=== PATIENT | female | born 1995 | race Caucasian/White ===

== ENCOUNTER 2018-05-30 20:01 | Emergency (ER) | payer OTHER ==
[2018-05-30 20:50] LABS: KETONE, URINE AUTO RFX TRACE mg/dL (NEGATIVE); LEUKOCYTE ESTERASE UR AUTO RFX NEGATIVE (NEGATIVE); MUCUS, URINE RFX SMALL (NEGATIVE); NITRITE, URINE AUTO RFX NEGATIVE (NEGATIVE); RBC, URINE AUTO RFX 5 /HPF (0-3); SPECIFIC GRAVITY UR AUTO RFX 1.027 (1.002-1.035); SQUAM EPITHELIAL CELL UR AURFX 6 /HPF (0-6); WBC, URINE AUTO RFX 3 /HPF (0-3)
[2018-05-31 01:13] LABS: BASO % 0.1 % (0.0-1.0); HEMATOCRIT 41.3 % (36.0-47.0); HEMOGLOBIN 14.3 g/dl (12.0-15.5); IMMATURE GRANULOCYTE % 0.4 % (0-3.0); LYMPH # 0.9 10^3/uL (1.5-6.5); LYMPH % 11.2 % (24.0-44.0); MEAN CORPUSCULAR HEMOGLOBIN 29.5 pg (27.0-33.0); MEAN CORPUSCULAR HGB CONC 34.6 g/dl (32.0-36.5); MEAN CORPUSCULAR VOLUME 85.3 fl (80.0-96.0); MONO # 0.6 10^3/uL (0.0-0.8); MONO % 6.7 % (0.0-5.0); NEUTROPHILS # 6.7 10^3/uL (1.8-7.7); NEUTROPHILS % 81.6 % (36.0-66.0); PLATELET COUNT, AUTOMATED 212 10^3/uL (150-450); RED BLOOD COUNT 4.84 10^6/uL (4.00-5.40); WHITE BLOOD COUNT 8.2 10^3/uL (4.0-10.0)
[2018-05-31 01:15] LABS: CONTROL LINE HCG INT CTR LINE PRESENT; HCG, SERUM QUALITATIVE NEGATIVE (NEGATIVE)
[2018-05-31 01:18] LABS: ANION GAP 12 MEQ/L (8-16); BLOOD UREA NITROGEN 13 MG/DL (7-18); CALCIUM LEVEL 8.9 MG/DL (8.5-10.1); CARBON DIOXIDE LEVEL 24 MEQ/L (21-32); CHLORIDE LEVEL 101 MEQ/L (98-107); CREATININE FOR GFR 0.69 MG/DL (0.55-1.30); GLUCOSE, FASTING 87 MG/DL (70-100); POTASSIUM SERUM 3.7 MEQ/L (3.5-5.1); SODIUM LEVEL 137 MEQ/L (136-145)
[2018-05-31] MEDS: ONDANSETRON 4MG/2ML VIAL (J2405) IV (01:28)
[2018-05-31] MEDS: NS 1,000 ML IV (01:29)
== END 2018-05-31 03:07 | disposition home or self-care (01) ==
LOC: M ED 20:01
DX: K52.9 Noninfective gastroenteritis and colitis, unspecified (principal); Z79.3 Long term (current) use of hormonal contraceptives; Z79.899 Other long term (current) drug therapy
CPT/HCPCS: J2405

== ENCOUNTER 2019-07-07 00:27 | Outpatient (CLI) | payer OTHER ==
[~2019-07-07] VITALS: Ht 161.3 cm; Wt 64.9 kg
[~2019-07-07 00:27] MED LIST: MELA3TAB49 PO; SERT25TA85 PO; YAZ1TAB PO; ZOFR4TAB14 SL
[2019-07-07 01:28] VITALS: BP 138/91
[2019-07-07 01:29] VITALS: BP 136/100
[2019-07-07 01:45] LABS: HEMATOCRIT 33.1 % (36.0-47.0); MEAN CORPUSCULAR HEMOGLOBIN 27.4 pg (27.0-33.0); MEAN CORPUSCULAR HGB CONC 33.2 g/dl (32.0-36.5); MEAN CORPUSCULAR VOLUME 82.3 fl (80.0-96.0); PLATELET COUNT, AUTOMATED 180 10^3/uL (150-450); RED BLOOD COUNT 4.02 10^6/uL (4.00-5.40); WHITE BLOOD COUNT 9.5 10^3/uL (4.0-10.0)
[2019-07-07 02:15] VITALS: BP 137/86
[2019-07-07 02:16] LABS: ALBUMIN 2.5 GM/DL (3.2-5.2); ALT/SGPT 18 U/L (12-78); BILIRUBIN,TOTAL 0.2 MG/DL (0.2-1.0); BLOOD UREA NITROGEN 8 MG/DL (7-18); CALCIUM LEVEL 8.6 MG/DL (8.5-10.1); CARBON DIOXIDE LEVEL 24 MEQ/L (21-32); CHLORIDE LEVEL 107 MEQ/L (98-107); CREATININE FOR GFR 0.59 MG/DL (0.55-1.30); GLOMERULAR FILTRATION RATE > 60.0 (>60); GLUCOSE, FASTING 98 MG/DL (70-100); POTASSIUM SERUM 4.1 MEQ/L (3.5-5.1); SODIUM LEVEL 138 MEQ/L (136-145); TOTAL PROTEIN 5.8 GM/DL (6.4-8.2)
--- NOTE | 2019-07-07 03:02 | IPNPDOC ---
Text Note Date of Service The patient was seen on 07/07/19. NOTE OB considerations: PTSD, Depression Elevated BP 07/07 Ms. Arcos is a 23y/o G1 @ 37+0 wks by 1st trimester US (CHRISTINA [id number]) presents to triage with multiple complaints. She notes dry cough and difficulty breathing, feeling flushed and hot/cold intolerance at home. She also notes leakage of watery discharge and pelvic cramping. She endorses active movement. Additionally, patient notes itching of feet and hands without rash. PE: T99.1F BP 138/91 RR17 HR 90 SpO2 99% RA BPS 0050 138/91 0128 138/91 0129 136/100 0214 137/86 General - alert and oriented, laughing Resp - CTAB, no crackles, wheezes or rhonchi. No increased work of breathing CV - RRR, no murmurs, rubs or gallops Abd - Soft, NT, ND. Gravid Ext- No edema erythema or calf tenderness NST: 140, mod ronen +accels, no decels TOCO: q5 minutes SSE: Cervix visually closed. Pooled white discharge and white chunks of discharge in vault. No leakage of clear fluid with or without valsalva. Microscopy: Clue cells present, no trichomonas, no yeast. No ferning present. TAUS: cephalic presentation, MVP 6.1cm Labs: H/H: 11/33.1 AST 14 ALT 18 Platelets 180 Cr 0.59 Urine Dipstick: No protein Bile Salts and Spot urine: Pending A/p: 23y/o G1 @ 37+0 wks with bacterial vaginosis, and transiently elevated BP, not in active labor. -Patient does not meet criteria for GHTN at this time. Will continue to monitor blood pressure. Discussed signs/symptoms of pre-eclampsia and return precautions given -Patient with itching of hands/feet. LFTs normal today. Will followup bile salts when results available. Patient to return if itching persists/worsens. -Bacterial vaginosis on swab today; will treat with Metronidazole 500mg BID x7 days -Cough; likely viral URI without concern for respiratory compromise, influenza or pneumonia -All questions answered to patient's apparent satisfaction. Return precautions and kick counts discussed. VS,Fishbone, I+O VS, Fishbone, I+O Laboratory Tests 07/07/19 01:35 Red Blood Count 4.02, Mean Corpuscular Volume 82.3, Mean Corpuscular Hemoglobin 27.4, Mean Corpuscular Hemoglobin Concent 33.2, Red Cell Distribution Width 12.3, Calcium Level 8.6, Aspartate Amino Transf (AST/SGOT) 14, Alanine Aminotransferase (ALT/SGPT) 18, Alkaline Phosphatase 154 H, Total Bilirubin 0.2, Total Protein 5.8 L, Albumin 2.5 L Rupal Randall MD Jul 07, 2019 03:02
[2019-07-07 03:32] LABS: CREATININE,RANDOM URINE 19.1 MG/DL; TOTAL PROTEIN,RANDOM URINE 6.4 MG/DL (0.0-12.0)
[2019-07-08] MEDS ORDERED: PROZ10CA7 PO (13:34)
[2019-07-08] MEDS ORDERED: FLAG250T PO (13:34)
[2019-07-08] MEDS ORDERED: PREN29TA4 PO (13:34)
[2019-07-08] MEDS ORDERED: FLUO40CA PO (15:21)
== END 2019-07-07 03:08 | disposition home or self-care (01) ==
LOC: M LDO 00:27
PROVIDERS: ATTEND Obstetrics & Gynecology
DX: O26.893 Other specified pregnancy related conditions, third trimester (principal); R05 Cough; N89.8 Other specified noninflammatory disorders of vagina; R10.2 Pelvic and perineal pain; O23.593 Infection of other part of genital tract in pregnancy, third trimester; B96.89 Other specified bacterial agents as the cause of diseases classified elsewhere; R03.0 Elevated blood-pressure reading, without diagnosis of hypertension; Z3A.37 37 weeks gestation of pregnancy
CPT/HCPCS: 36415; 59025; 76815; 80053; 82239; 82570; 84156; 85027; G0378; G0463

== ENCOUNTER 2019-07-08 13:01 | Inpatient (IN) | payer OTHER ==
[~2019-07-08] VITALS: Ht 160 cm; Wt 63.5 kg
[2019-07-08] VITALS (36 sets, daily range): BP systolic 121–168; BP diastolic 61–111
[2019-07-08] MEDS ORDERED: PREN29TA4 PO (13:34)
[2019-07-08] MEDS ORDERED: FLAG250T PO (13:34)
[2019-07-08] MEDS ORDERED: PROZ10CA7 PO (13:34)
[2019-07-08] MEDS ORDERED: miSOPROStol 25 MCG 1/4 TAB (S0191) PO SCH (15:00)
[2019-07-08] MEDS ORDERED: FLUO40CA PO (15:21)
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
[2019-07-08] MEDS: miSOPROStol 25 MCG 1/4 TAB (S0191) SL SCH ×2 (16:57→21:07)
[2019-07-08] MEDS: FLUoxetine 20 MG CAP PO SCH (16:57)
[2019-07-08 17:09] LABS: HEMATOCRIT 34.2 % (36.0-47.0); HEMOGLOBIN 11.3 g/dl (12.0-15.5); MEAN CORPUSCULAR HEMOGLOBIN 26.3 pg (27.0-33.0); MEAN CORPUSCULAR VOLUME 79.7 fl (80.0-96.0); PLATELET COUNT, AUTOMATED 208 10^3/uL (150-450); RED BLOOD COUNT 4.29 10^6/uL (4.00-5.40); WHITE BLOOD COUNT 9.6 10^3/uL (4.0-10.0)
[2019-07-08 17:34] LABS: ALT/SGPT 17 U/L (12-78); BILIRUBIN,TOTAL 0.3 MG/DL (0.2-1.0); CREATININE FOR GFR 0.49 MG/DL (0.55-1.30); GLOMERULAR FILTRATION RATE > 60.0 (>60); LDH LACTATE DEHYDROGENASE 156 U/L (84-246); URIC ACID 3.2 MG/DL (2.6-6.0)
[2019-07-09] VITALS (46 sets, daily range): BP systolic 112–162; BP diastolic 58–102
[2019-07-09] MEDS: miSOPROStol 25 MCG 1/4 TAB (S0191) SL SCH (01:03)
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
[2019-07-09] MEDS ORDERED: miSOPROStol 50 MCG 1/2 TAB (S0191) SL ONE ×2 (03:45→05:00)
[2019-07-09] MEDS ORDERED: SLF 3 ML SYR IV PRN (08:45)
[2019-07-09] MEDS: FLUoxetine 20 MG CAP PO SCH (08:47)
[2019-07-09] MEDS: LR 1,000 ML IV SCH ×2 (09:41→15:47)
[2019-07-09] MEDS ORDERED: miSOPROStol 50 MCG 1/2 TAB (S0191) PO ONE (10:00)
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
[2019-07-09] MEDS ORDERED: ACETAMINOPHEN TAB 650MG DOSE (2X325MG) PO ONE (11:00)
[2019-07-09] MEDS ORDERED: SLF 3 ML SYR IV SCH (14:00)
[2019-07-09] MEDS ORDERED: LR 1,000 ML IV SCH ×2 (17:10→23:01)
[2019-07-09] MEDS ORDERED: BUPIVACAINE HCL 0.25% 10 ML VIAL SC ONE (17:15)
[2019-07-09] MEDS ORDERED: LACTATED RINGER'S 1000 ML IV ONE (17:15)
[2019-07-09] MEDS ORDERED: ceFAZolin SOD 2 GM in IV 1 EA IV ONE (17:15)
[2019-07-09] MEDS ORDERED: BICITRA 30ML SOLN UDC PO ONE (17:15)
[2019-07-09] MEDS ORDERED: ACETAMINOPHEN 650 MG SUPP PR ONE (17:30)
[2019-07-09 17:39] LABS: HEMATOCRIT 33.1 % (36.0-47.0); HEMOGLOBIN 11.1 g/dl (12.0-15.5); MEAN CORPUSCULAR HEMOGLOBIN 27.1 pg (27.0-33.0); MEAN CORPUSCULAR HGB CONC 33.5 g/dl (32.0-36.5); MEAN CORPUSCULAR VOLUME 80.9 fl (80.0-96.0); PLATELET COUNT, AUTOMATED 205 10^3/uL (150-450); RED BLOOD COUNT 4.09 10^6/uL (4.00-5.40); WHITE BLOOD COUNT 10.7 10^3/uL (4.0-10.0)
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
[2019-07-09] MEDS ORDERED: OXYTOCIN INJ 10 UNITS/ML VIAL (J2590) As Ordered ONE ×3 (21:30→22:30)
[2019-07-09] MEDS ORDERED: ONDANSETRON 4MG/2ML VIAL (J2405) As Ordered ONE (21:36)
[2019-07-09] MEDS ORDERED: dexameTHASONE 4 MG/ML 1ML VIAL (J1100) As Ordered ONE (21:36)
[2019-07-09] MEDS ORDERED: MORPHINE PRES-FREE INJ 10 MG/10 ML VIAL (J2274) As Ordered ONE (21:37)
[2019-07-09] MEDS ORDERED: METOCLOPRAMIDE INJ 10MG/2ML VIAL (J2765) IV PRN (21:58)
[2019-07-09] MEDS ORDERED: NALOXONE INJ 0.4 MG/1 ML VIAL (J2310) IV PRN ×2 (21:58)
[2019-07-09] MEDS ORDERED: diphenhydrAMINE INJ 50MG/ML VIAL (J1200) IV PRN (21:58)
[2019-07-09] MEDS ORDERED: ONDANSETRON 4MG/2ML VIAL (J2405) IV PRN ×2 (21:58→22:45)
[2019-07-09] MEDS ORDERED: NALBUPHINE HCL 10 MG/ML AMP (J2300) IV PRN ×2 (21:58→22:45)
[2019-07-09] MEDS ORDERED: PHENYLephrine HCL 500 MCG/5 ML (100MCG/ML) SYRINGE (J2370) As Ordered ONE (22:30)
[2019-07-09] MEDS ORDERED: KETOROLAC 60 MG/2 ML VIAL (J1885) As Ordered ONE (22:30)
[2019-07-09 22:33] LABS: CORD GAS ABE A -5.4; CORD GAS ABE V -3.6; CORD GAS HCO3 A 21.2 MEQ/L; CORD GAS HCO3 V 22.7 MEQ/L; CORD GAS O2 SAT A 35.2 %; CORD GAS O2 SAT V 37.4 %; CORD GAS PCO2 V 45.7 mmHg; CORD GAS PH A 7.291 UNITS; CORD GAS PH V 7.314 UNITS; CORD GAS PO2 A 18.2 mmHg; CORD GAS PO2 V 17.4 mmHg; CORD GAS SBC A 18.7 MEQ/L; CORD GAS SBC V 20.1 MEQ/L; CORD GAS TCO2 A 22.6 MEQ/L; CORD GAS TCO2 V 24.1 MEQ/L
[2019-07-09] MEDS ORDERED: KETOROLAC 30 MG/ML VIAL (J1885) IV PRN (22:45)
[2019-07-09] MEDS ORDERED: fentaNYL 100 MCG/2 ML INJECTION (J3010) IV PRN (22:45)
[2019-07-09] MEDS ORDERED: MEASLES,MUMPS,RUBELLA VACCINE INJ (MMR-II) (90707) SC SCH (23:15)
[2019-07-09] MEDS ORDERED: ACETAMINOPHEN 500 MG TAB PO PRN (23:15)
[2019-07-09] MEDS ORDERED: OXYTOCIN INJ 10 UNITS/ML VIAL (J2590) IV ONE (23:15)
[2019-07-09] MEDS ORDERED: METHYLERGONOVINE MALEATE 0.2 MG TAB PO PRN (23:15)
[2019-07-09] MEDS ORDERED: RHOGAM 300 MCG (1500 IU) INJ (J2790) IM SCH (23:15)
[2019-07-09] MEDS ORDERED: MOM 30ML SUSPENSION UDC PO PRN (23:15)
[2019-07-09] MEDS ORDERED: DOCUSATE SODIUM 100 MG CAP PO PRN (23:15)
[2019-07-09] MEDS ORDERED: ANUSOL HC CREAM 30GM TOP PRN (23:15)
[2019-07-09] MEDS ORDERED: OXYTOCIN DRIP 30 UNITS in IV 1 EA IV ONE (23:15)
[2019-07-09] MEDS ORDERED: ACETAMINOPHEN TAB 650MG DOSE (2X325MG) PO PRN (23:15)
[2019-07-09] MEDS ORDERED: OXYTOCIN 30 UNITS IN 0.9% NaCl 500ML IV BAG (J2590) As Ordered ONE (23:38)
[2019-07-10] VITALS (9 sets, daily range): BP systolic 116–144; BP diastolic 64–84
[2019-07-10] MEDS: KETOROLAC 30 MG/ML VIAL (J1885) IV SCH ×3 (04:38→16:54)
[2019-07-10 07:06] LABS: HEMATOCRIT 29.6 % (36.0-47.0); HEMOGLOBIN 9.8 g/dl (12.0-15.5); MEAN CORPUSCULAR HEMOGLOBIN 26.7 pg (27.0-33.0); MEAN CORPUSCULAR HGB CONC 33.1 g/dl (32.0-36.5); MEAN CORPUSCULAR VOLUME 80.7 fl (80.0-96.0); PLATELET COUNT, AUTOMATED 206 10^3/uL (150-450); RED BLOOD COUNT 3.67 10^6/uL (4.00-5.40); WHITE BLOOD COUNT 16.2 10^3/uL (4.0-10.0)
[2019-07-10] MEDS: PRENATAL VITAMINS CHEWABLE TABLET PO SCH (09:44)
[2019-07-10] MEDS: FLUoxetine 20 MG CAP PO SCH (09:44)
[2019-07-10] MEDS ORDERED: IBUPROFEN 800 MG TAB PO PRN (12:30)
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
[2019-07-11 02:00] VITALS: BP 126/74
[2019-07-11] MEDS: PERCOCET 5MG/325MG TAB PO PRN ×3 (04:06→19:34)
[2019-07-11 06:00] VITALS: BP 119/67
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
[2019-07-11] MEDS: PRENATAL VITAMINS CHEWABLE TABLET PO SCH (08:00)
[2019-07-11] MEDS: IBUPROFEN 600 MG TAB PO PRN ×2 (08:01→16:09)
[2019-07-11] MEDS: FLUoxetine 20 MG CAP PO SCH (08:01)
[2019-07-11] MEDS ORDERED: INFLUENZA QUADRIVALENT PF VACCINE 0.5ML SYRINGE (90686) IM ONE (09:00)
[2019-07-11 18:18] VITALS: BP 121/78
[2019-07-11 22:00] VITALS: BP 128/87
[2019-07-12] MEDS: PERCOCET 5MG/325MG TAB PO PRN (00:30)
[2019-07-12] MEDS: IBUPROFEN 600 MG TAB PO PRN (04:34)
[2019-07-12 05:34] VITALS: BP 127/90
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
[2019-07-12] MEDS: PRENATAL VITAMINS CHEWABLE TABLET PO SCH (08:12)
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
[2019-07-12] MEDS: FLUoxetine 20 MG CAP PO SCH (11:32)
== END 2019-07-12 13:10 | disposition home or self-care (01) | DRG 773 ==
LOC: M LDO 13:01 → M LDI 14:46 → M OBS 07-10 01:00
PROVIDERS: ADMIT Obstetrics & Gynecology; ATTEND Obstetrics & Gynecology
PROC: 3E0P7GC Introduction of Other Therapeutic Substance into Female Reproductive, Via Natural or Artificial Opening (ICD-10-PCS; 2019-07-09)
PROC: 10D00Z1 Extraction of Products of Conception, Low, Open Approach (ICD-10-PCS; principal; 2019-07-09 19:16)
DX: O14.04 Mild to moderate pre-eclampsia, complicating childbirth (principal); O9A.42 Sexual abuse complicating childbirth; Z37.0 Single live birth; Z3A.37 37 weeks gestation of pregnancy; O99.344 Other mental disorders complicating childbirth; F43.10 Post-traumatic stress disorder, unspecified

== ENCOUNTER 2020-08-28 22:04 | Outpatient (CLI) | payer OTHER ==
[~2020-08-28] VITALS: Ht 161.3 cm; Wt 60.6 kg
[~2020-08-28 22:04] MED LIST changes: +FLAG250T PO; +FLUO40CA PO; +PREN29TA4 PO; +PROZ10CA7 PO
[2020-08-28 22:21] VITALS: BP 128/79
[2020-08-28] MEDS ORDERED: LR 1,000 ML IV ONE (23:15)
[2020-08-28] MEDS ORDERED: LR 1,000 ML IV SCH (23:15)
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
== END 2020-08-29 01:05 | disposition home or self-care (01) ==
LOC: M LDO 22:04
PROVIDERS: ATTEND Obstetrics & Gynecology
DX: O26.893 Other specified pregnancy related conditions, third trimester (principal); Z3A.30 30 weeks gestation of pregnancy
CPT/HCPCS: G0378; G0463

== ENCOUNTER → 2020-10-04 | Outpatient (REF) | payer OTHER ==
[2020-10-04 13:12] LABS: CREATININE, URINE 28.5 MG/DL; TOTAL PROTEIN 24 HOUR URINE 207.2 MG/24HR (50-150); URINE TOTAL PROTEIN 7.4 MG/DL (0-12)
== END ==
LOC: M LAB REF 12:26
PROVIDERS: ATTEND Obstetrics & Gynecology
DX: O14.90 Unspecified pre-eclampsia, unspecified trimester (principal)

== ENCOUNTER 2020-11-11 02:51 | Outpatient (CLI) | payer OTHER ==
[~2020-11-11] VITALS: Ht 160 cm; Wt 65.8 kg
[~2020-11-11 02:51] MED LIST changes: +CITA20TA6 PO; +ONDA4TAB6 PO
[2020-11-11 03:35] VITALS: BP 138/88
[2020-11-11 04:35] VITALS: BP 138/93
[2020-11-11 05:36] VITALS: BP 128/91
[2020-11-11 06:36] VITALS: BP 132/92
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
[2020-11-11 07:29] VITALS: BP 125/86
--- NOTE | 2020-11-11 07:39 | IPNPDOC ---
Text Note Date of Service The patient was seen on 11/11/20. NOTE reviewed 11/11/20 037 am with fluids contractions spaced out category 1 strip safe to proceed discussed precautions discharged undelivered VS,Jacob, I+O VS, Jacob, I+O Vital Signs Date Time Temp Pulse Resp B/P (MAP) Pulse Ox O2 Delivery O2 Flow Rate FiO2 11/11/20 06:36 98.7 82 18 132/92 (105) Jose Cardenas MD Nov 11, 2020 07:39
[2020-11-11] MEDS ORDERED: LR 1,000 ML IV ONE (07:45)
[2020-11-11] MEDS ORDERED: LR 1,000 ML IV SCH (08:45)
== END 2020-11-11 07:58 | disposition home or self-care (01) ==
LOC: M LDO 02:51
PROVIDERS: ATTEND Obstetrics & Gynecology
DX: O47.1 False labor at or after 37 completed weeks of gestation (principal); Z3A.39 39 weeks gestation of pregnancy
CPT/HCPCS: 59025; 96360; G0378; G0463

== ENCOUNTER 2020-11-12 10:12 | Inpatient (IN) | payer OTHER ==
[~2020-11-12] VITALS: Ht 160 cm; Wt 64.5 kg
[2020-11-12] VITALS (7 sets, daily range): BP systolic 107–144; BP diastolic 70–93
[2020-11-12] MEDS ORDERED: LACTATED RINGER'S 1000 ML IV STA (10:36)
[2020-11-12] MEDS ORDERED: LR 1,000 ML IV SCH (10:36)
[2020-11-12] MEDS ORDERED: AZITHROMYCIN INJ 500 MG, VIAL MATE ADAPTER 1 EACH in D5W 250 ML IV ONE (10:45)
[2020-11-12] MEDS ORDERED: ceFAZolin SOD 2 GM in IV 1 EA IV ONE (10:45)
[2020-11-12] MEDS ORDERED: BICITRA 30ML SOLN UDC PO ONE (10:45)
--- OUTSIDE RECORDS SUMMARY | 2020-11-12 10:46 | CCD ---
Author Author [facility] Organization [facility] Address Unknown Phone Unavailable Care Team Providers Care Base Loader Name Role Phone [facility] JESSE Unavailable Unavailable O'lucio, A Vasquez PA Unavailable Unavailable O'lucio, A Vasquez PA Unavailable Unavailable O'lucio, A Vasquez PA Unavailable Unavailable O'lucio, A Vasquez PA Unavailable Unavailable O'lucio, A Vasquez PA Unavailable Unavailable O'lucio, A Vasquez PA Unavailable Unavailable O'lucio, A Vasquez PA Unavailable Unavailable O'lucio, A Vasquez PA Unavailable Unavailable O'lucio, A Vasquez PA Unavailable Unavailable O'lucio, A Vasquez PA Unavailable Unavailable O'lucio, A Vasquez PA Unavailable Unavailable O'lucio, A Vasquez PA Unavailable Unavailable O'lucio, A Vasquez PA Unavailable Unavailable O'lucio, A Vasquez PA Unavailable Unavailable O'lucio, A Vasquez PA Unavailable Unavailable O'lucio, A Vasquez PA Unavailable Unavailable O'lucio, A Vasquez PA Unavailable Unavailable O'lucio, A Vasquez PA Unavailable Unavailable O'lucio, A Vasquez PA Unavailable Unavailable O'lucio, A Vasquez PA Unavailable Unavailable O'lucio, A Vasquez PA Unavailable Unavailable O'lucio, A Vasquez PA Unavailable Unavailable O'lucio, A Vasquez PA Unavailable Unavailable O'lucio, A Vasquez PA Unavailable Unavailable O'lucio, A Vasquez PA Unavailable Unavailable O'lucio, A Vasquez PA Unavailable Unavailable O'lucio, A Vasquez PA Unavailable Unavailable O'lucio, A Vasquez PA Unavailable Unavailable O'lucio, A Vasquez PA Unavailable Unavailable O'lucio, A Vasquez PA Unavailable Unavailable O'lucio, A Vasquez PA Unavailable Unavailable O'lucio, A Vasquez PA Unavailable Unavailable O'lucio, A Vasquez PA Unavailable Unavailable Re-disclosure Warning The records that you are about to access may contain information from federally-assisted alcohol or drug abuse programs. If such information is present, then the following federally mandated warning applies: This information has been disclosed to you from records protected by federal confidentiality rules (42 CFR part 2). The federal rules prohibit you from making any further disclosure of this information unless further disclosure is expressly permitted by the written consent of the person to whom it pertains or as otherwise permitted by 42 CFR part 2. A general authorization for the release of medical or other information is NOT sufficient for this purpose. The Federal rules restrict any use of the information to criminally investigate or prosecute any alcohol or drug abuse patient.The records that you are about to access may contain highly sensitive health information, the redisclosure of which is protected by Article 27-F of the [facility] Public Health law. If you continue you may have access to information: Regarding HIV / AIDS; Provided by facilities licensed or operated by the [facility] Office of Mental Health; or Provided by the [facility] Office for People With Developmental Disabilities. If such information is present, then the following [facility] mandated warning applies: This information has been disclosed to you from confidential records which are protected by state law. State law prohibits you from making any further disclosure of this information without the specific written consent of the person to whom it pertains, or as otherwise permitted by law. Any unauthorized further disclosure in violation of state law may result in a fine or fpc sentence or both. A general authorization for the release of medical or other information is NOT sufficient authorization for further disc losure. Encounters Encounter Providers Location Date Indications Data Source(s ) Outpatient Attender: JESSE [facility] 02/22/2020 12:17:31 AM ED T [facility] Outpatient Attender: Vasquez PALM [facility] 11/08/2019 09:40:00 AM VERITO LITTLEJOHN ([facility]) Outpatient Attender: Vasquez PALM [facility] 10/16/2019 01:00:00 PM EST [facility] ([facility]) Medications Medication Brand Name Start Date Product Form Dose Route Admi nistrative Instructions Pharmacy Instructions Status Indications Reaction Description Data Source(s) Flonase Allergy Relief Flonase Allergy Relief 10/16/2019 12:00:[address] active [facility] ([facility]) venlafaxine 37.5 MG Oral Tablet Venlafaxine HCL 10/16/2019 12:00:00 A M EST ORAL completed [facility] ([facility]) Nystatin [id number] UNT/ML Topical Cream Nystatin 10/16/2019 12:00:00 AM EST active [facility] ([facility]) Insurance Providers Payer name Policy type / Coverage type Policy ID Covered alliance party ID Covered alliance party's relationship to walker Policy Walker Plan Information [facility] HUMANA [id number] [facility] [id number] Self Pay P [id number] S [id number] [place] [employer]UTY [id number] SP [id number] Self Pay P UNAVAILABLE S UNAVAILA BLE D [facility] Dental Prog P [id number] S [id number] [place] HUMANA - O/P [id number] 18 [id number] [employer] [id number] Results ID Date Data Source [id number] 10/04/2020 10:21:00 AM EST [facility] Name Value Range Interpretation Code Description Data Yue rce(s) Supporting Document(s) SARS-CoV-2 NEGATIVE [facility] This lab was ordered by MIKHAIL CHERY OWN [id number] and reported by [facility]. ID Date Data Source [id number] 10/04/2020 12:00:00 AM EST [facility] Name Value Range Interpretation Code Description Data Yue rce(s) Supporting Document(s) SARS-CoV-2 RT-PCR negative [facility] This lab was ordered by [facility] and re ported by [employer]. ID Date Data Source [id number] 10/16/2019 02:59:00 PM EST [facility] ([facility]) Name Value Range Interpretation Code Description Data Yue rce(s) Supporting Document(s) Inhouse Urine negative M [facility] ([facility]) Procedure Vital Signs ID Date Data Source UNK Name Value Range Interpretation Code Description Data Source(s) Oxygen saturation in Arterial blood by Pulse oximetry 98 % 98 % [facility] ([facility]) Body temperature 97.5 [degF] 97.5 [degF] [facility] ([facility]) Respiratory rate 18 /min 18 /min [facility] ( [facility]) Heart rate 80 /min 80 /min [facility] ([facility]) Body mass index (BMI) [Ratio] 22.1 kg/m2 22.1 k g/m2 [facility] ([facility]) Body weight 131.00 [lb_av] 131.00 [lb_av] [facility] Body height 64.6 [in_i] 64.6 [in_i] [facility] ([facility]) 5'4.60" Diastolic blood pressure 66 mm[Hg] 66 mm[Hg] [facility] ([facility]) Systolic blood pressure 118 mm[Hg] 118 mm[Hg] [facility] ([facility]) Oxygen saturation in Arterial blood by Pulse oximetry 98 % 98 % [facility] ([facility]) Body temperature 97.3 [degF] 97.3 [degF] [facility] ([facility]) Respiratory rate 18 /min 18 /min [facility] ( [facility]) Heart rate 88 /min 88 /min [facility] ([facility]) Body mass index (BMI) [Ratio] 21.5 kg/m2 21.5 k g/m2 [facility] ([facility]) Body weight 127.38 [lb_av] 127.38 [lb_av] [facility] ([facility]) Body height 64.6 [in_i] 64.6 [in_i] [facility] ([facility]) 5'4.60" Diastolic blood pressure 68 mm[Hg] 68 mm[Hg] [facility] ([facility]) Systolic blood pressure 116 mm[Hg] 116 mm[Hg] M [facility] ([facility])
[2020-11-12 11:05] LABS: HEMATOCRIT 35.3 % (36.0-47.0); MEAN CORPUSCULAR HEMOGLOBIN 28.4 pg (27.0-33.0); MEAN CORPUSCULAR VOLUME 83.5 fl (80.0-96.0); PLATELET COUNT, AUTOMATED 189 10^3/uL (150-450); RED BLOOD COUNT 4.23 10^6/uL (4.00-5.40); WHITE BLOOD COUNT 11.1 10^3/uL (4.0-10.0)
[2020-11-12] MEDS ORDERED: OXYTOCIN 30 UNITS IN 0.9% NaCl 500ML IV BAG (J2590) As Ordered ONE ×2 (11:15→12:59)
[2020-11-12] MEDS ORDERED: MORPHINE PRES-FREE INJ 10 MG/10 ML VIAL (J2274) As Ordered ONE (11:16)
[2020-11-12] MEDS ORDERED: PHENYLephrine 500MCG 5ML (100MCG/ML) SYRINGE As Ordered ONE (11:16)
[2020-11-12] MEDS ORDERED: ePHEDrine SULFATE 25 MG/5 ML(5MG/ML) SYRINGE As Ordered ONE (11:16)
[2020-11-12] MEDS ORDERED: NALOXONE INJ 0.4MG/1ML VIAL (J2310 PER 1MG) IV PRN ×2 (11:48)
[2020-11-12] MEDS ORDERED: NALBUPHINE HCL 10 MG/ML AMP (J2300) IV PRN (11:48)
[2020-11-12] MEDS ORDERED: ONDANSETRON 4MG/2ML VIAL IV PRN ×2 (11:48→13:15)
[2020-11-12] MEDS ORDERED: METOCLOPRAMIDE INJ 10MG/2ML VIAL (J2765 PER 1) IV PRN (11:48)
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
[2020-11-12] MEDS ORDERED: METOCLOPRAMIDE INJ 10MG/2ML VIAL (J2765 PER 1) As Ordered ONE (12:02)
[2020-11-12] MEDS ORDERED: ONDANSETRON 4MG/2ML VIAL As Ordered ONE (12:04)
[2020-11-12] MEDS ORDERED: MIDAZOLAM INJ 2MG/2ML VIAL (J2250 PER 1MG) As Ordered ONE (12:17)
[2020-11-12] MEDS ORDERED: KETOROLAC 60MG 2ML VIAL As Ordered ONE (12:23)
[2020-11-12] MEDS: LR 1,000 ML IV SCH ×3 (12:51→20:51)
[2020-11-12] MEDS ORDERED: OXYTOCIN DRIP 30 UNITS in IV 1 EA IV SCH (12:51)
[2020-11-12] MEDS ORDERED: PERCOCET 5MG/325MG TAB PO PRN ×2 (13:00)
[2020-11-12] MEDS ORDERED: SIMETHICONE 80MG CHEW TAB PO PRN (13:00)
[2020-11-12] MEDS ORDERED: RHOGAM 300 MCG (1500 IU) INJ (J2790) IM SCH (13:00)
[2020-11-12] MEDS ORDERED: MEASLES,MUMPS,RUBELLA VACCINE INJ (MMR-II) (90707) SC SCH (13:00)
[2020-11-12] MEDS ORDERED: PROMETHAZINE 25 MG TAB PO PRN (13:00)
[2020-11-12] MEDS ORDERED: DOCUSATE SODIUM 100MG CAPSULE PO PRN (13:00)
[2020-11-12] MEDS ORDERED: fentaNYL 100 MCG/2 ML INJECTION (J3010) IV PRN (13:15)
[2020-11-12] MEDS ORDERED: oxyCODONE 5MG TAB PO PRN (13:15)
--- NOTE | 2020-11-12 15:00 | RO ---
OPERATIVE NOTE DATE OF OPERATION: 11/12/2020 PREOPERATIVE DIAGNOSIS: 1. Labor with history of section and no desire for TOLAC 2. Satisfied parity. POSTOPERATIVE DIAGNOSIS: 1. Labor with history of section and no desire for TOLAC 2. Satisfied parity. PROCEDURE: Repeat low transverse section with bilateral tubal ligation. SURGEON: Dr. Ramos DELIVERY ENGINEER: Dr. Cardenas INTRAVENOUS FLUIDS: 700 mL lactated Ringer's (LR). URINE OUTPUT: 100 mL via Bonner catheter. ESTIMATED BLOOD LOSS: 500 mL. ANTIBIOTICS: Two grams Ancef and 500 mg azithromycin before skin incision. ANESTHESIA: Spinal COMPLICATIONS: None. OPERATIVE FINDINGS: Viable male infant found and delivered in cephalic presentation. Clear amniotic fluid. weight 3150 grams, or 6 pounds 15 ounces. scores were 9 and 9. Normal-appearing placenta, normal uterus, and normal fallopian tubes bilaterally. DESCRIPTION OF PROCEDURE: The risks, benefits, indications, and alternatives of the procedure were reviewed with the patient and informed consent was obtained. The patient was taken to the operating room where spinal anesthesia was obtained and found to be adequate. She was then prepped and draped in the usual sterile fashion in the dorsal supine position with a leftward tilt. A surgical time-out was then performed and the patient's identity and planned procedure were verified with the operative team. A Pfannenstiel skin incision was then made with the scalpel and carried through to the underlying layer of fascia. The fascia was incised in the midline and the incision was extended laterally with Linder scissors. The superior aspect of the fascial incision was grasped with Leland clamps, elevated, and the underlying rectus muscles were dissected off bluntly and with the scalpel. Attention was then turned to the inferior aspect of this incision, which in a similar fashion was grasped, tented up with Leland clamps, and the rectus muscles were dissected off with Linder scissors. The rectus muscles were then in the midline. The peritoneum was identified, tented up, and entered digitally. The peritoneal incision was then extended horizontally and superiorly with good visualization of the bladder. A bladder blade was then introduced into the abdomen. The vesicouterine peritoneum was then identified. A bladder flap was then made with Metzenbaum scissors. Next, the lower uterine segment was incised in a transverse fashion with the scalpel. The amniotic sac was artificially ruptured, productive of clear fluid. The uterine incision was then extended manually in a superolateral fashion. The bladder blade was removed, and the infant was found to be in cephalic presentation. The baby was then delivered without difficulty through the hysterotomy site. The cord was then doubly clamped and cut. The was handed off the awaiting pediatricians. The placenta was then removed manually with gently traction on the umbilical cord. The uterus was then cleared of all clots and debris. The bladder blade was introduced once again, and the hysterotomy was repaired with 0 Monocryl suture in a running-locked fashion. A second layer of 0 Monocryl was then used to imbricate the hysterotomy site in a vertical fashion. Irrigation was then performed. Inspection of the hysterotomy revealed excellent hemostasis. Attention was then turned to the patient's fallopian tubes. The left fallopian was grasped with a Ant clamp at the isthmic portion. A Filshie clip was then placed across the isthmic portion of the fallopian tube at a right angle. Attention was then turned the patient's right fallopian tube, which was grasped with a [place] clamp at the isthmic portion. A Filshie clip was then placed at the isthmic portion of the fallopian tube at a right angle. Both tubes were noted to be completely occluded. There was excellent hemostasis. Inspection of the hysterotomy again revealed excellent hemostasis. The pericolic gutters were cleared of all clots and debris. The patient's peritoneum was then closed with a running suture of 3- 0 Vicryl. The fascia was reapproximated using 0 Vicryl suture in a running fashion. The subcutaneous fat was then closed with 3-0 Vicryl suture in a running fashion. The skin was then closed with 4-0 Monocryl suture in a subcuticular fashion. The incision was then dressed with a pressure dressing after application of Steri-Strips. At the completion of the case, a bimanual exam was performed which revealed good uterine tone and minimal vaginal bleeding. The patient tolerated the procedure well. Sponge, instrument, needle, and lap counts were correct times three. The patient tolerated the procedure well and was taken to the recovery room in stable condition. RICHARD
[2020-11-12] MEDS: diphenhydrAMINE 50MG/ML VIAL (J1200) IV PRN ×2 (16:45→20:30)
[2020-11-12] MEDS: KETOROLAC 30 MG/ML 1ML VIAL IV SCH ×2 (16:46→23:08)
[2020-11-13 02:00] VITALS: BP 113/79
[2020-11-13] MEDS: diphenhydrAMINE 50MG/ML VIAL (J1200) IV PRN (02:19)
[2020-11-13] MEDS: KETOROLAC 30 MG/ML 1ML VIAL IV SCH (04:45)
[2020-11-13 05:46] VITALS: BP 125/79
[2020-11-13 07:18] LABS: HEMATOCRIT 28.6 % (36.0-47.0); MEAN CORPUSCULAR HEMOGLOBIN 28.4 pg (27.0-33.0); MEAN CORPUSCULAR HGB CONC 33.6 g/dl (32.0-36.5); MEAN CORPUSCULAR VOLUME 84.6 fl (80.0-96.0); PLATELET COUNT, AUTOMATED 146 10^3/uL (150-450); RED BLOOD COUNT 3.38 10^6/uL (4.00-5.40); WHITE BLOOD COUNT 17.3 10^3/uL (4.0-10.0)
[2020-11-13 07:28] LABS: HEMOGLOBIN 9.6 g/dl (12.0-15.5)
--- NOTE | 2020-11-13 07:37 | IPNPDOC ---
Progress Note Date of Service: Nov 13, 2020 Progress Note Ms. Arcos is a 25 yo G2 now P2 who underwent an uncomplicated RLTCS with BTL yesterday afternoon after being admitted for active labor and having no desire for TOLAC. Overnight she had her diana catheter removed and she has been voiding on her own spontaneously. Vanessa reports feeling well this AM. She is ambulating, voiding, tolerating a regular diet. Pain is well controlled with current medication regimen. She denies any n/v. Lochia is minimal. Vitals - VSS, afebrile, normotensive, non tachycardic General - AAOX3, sitting up in bed, pleasant and conversant, NAD Abdomen - Fundus firm at U-2. No fundal tenderness. Bandage removed from incision. Incision is well appearing. Steri strips in place. Incision clean/dry/intact. No erythema, induration., or breakdown. Minimal tenderness to palpation. Extremities - No edema Labs: Pre op H/H ~ --> post op this AM ~07/23 UO - appropriate Ms. Arcos is doing well this morning and is making an appropriate post operative recovery. Recommend ambulation today and abdominal binder. Continue to encourage . Continue routine post op care. Anticipate discharge home tomorrow. All questions answered. Kenzie Ramos DO VS, I&O, 24H, Jacob Vital Signs/I&O Vital Signs Date Time Temp Pulse Resp B/P (MAP) Pulse Ox O2 Delivery O2 Flow Rate FiO2 11/13/20 05:46 98.5 90 16 125/79 (94) 98 Room Air I&O- Last 24 Hours up to 6 AM 11/13/20 06:00 Intake Total 2235 ml Output Total 1200 ml Balance 1035 ml Laboratory Data 24H LABS Laboratory Tests 2 11/12/20 10:47: Serology Scanned Report Hepatitis B Testing 11/12/20 10:49: Nucleated Red Blood Cells % (auto) 0.0, Syphilis Serology NONREACTIVE 11/13/20 06:47: Nucleated Red Blood Cells % (auto) 0.0 CBC/BMP Laboratory Tests 11/12/20 10:49 11/13/20 06:47 KENZIE RAMOS DO Nov 13, 2020 07:37
[2020-11-13] MEDS: PRENATAL VITAMINS CHEWABLE TABLET PO SCH (08:42)
[2020-11-13] MEDS ORDERED: INFLUENZA QUADRIVALENT PF VACCINE 0.5ML SYRINGE IM ONE (09:00)
[2020-11-13 09:55] VITALS: BP 123/72
[2020-11-13] MEDS: IBUPROFEN 800 MG TAB PO SCH ×2 (12:17→21:34)
--- NOTE | 2020-11-13 16:41 | IPN ---
PROGRESS NOTE DATE: 11/12/2020 This patient and her requested circumcision of her male infant. After discussing risks and benefits of circumcision, the medical and the nonmedical indications, the penile block and aftercare; expressed understanding of penile block, aftercare, and bleeding. Signed the consent form. All questions were answered, 20 minute discussion. We await clearance by the telemetry monitor.
[2020-11-13 18:00] VITALS: BP 139/91
[2020-11-13] MEDS ORDERED: CitaloPRAM (CeleXA) 20 MG TAB PO ONE (20:45)
[2020-11-13 21:48] VITALS: BP 139/93
[2020-11-14 02:26] VITALS: BP 133/82
[2020-11-14] MEDS: IBUPROFEN 800 MG TAB PO SCH (05:31)
[2020-11-14 06:03] VITALS: BP 116/78
[2020-11-14] MEDS ORDERED: PERCOCET PO (06:21)
[2020-11-14] MEDS ORDERED: DOK1CAP7 PO (06:21)
[2020-11-14] MEDS ORDERED: IBUP80TA PO (06:21)
[2020-11-14] MEDS ORDERED: INFLUENZA QUADRIVALENT PF VACCINE 0.5ML SYRINGE IM ONE (09:00)
--- NOTE | 2020-11-14 09:55 | DSES ---
DISCHARGE SUMMARY DATE OF ADMISSION: 11/12/2020 DATE OF DISCHARGE: 11/14/2020 HISTORY: This patient is a 25-year-old 3, para 2 admitted in active labor for repeat section, bilateral tubal ligation by Filshie clip, delivered a live male infant, 6 pounds 15 ounces, 3150 grams, scores of 9 and 9 at one and five minutes respectively. On her second day, we discussed phlebitis, cystitis, mastitis, endometritis, cellulitis, diet, exercise, pain management, perineal, breast and wound care. Admitting hemoglobin was 12.0, hematocrit 35.5 and platelets 180. Discharge hemoglobin 9.6, hematocrit 28.6 and platelets 146. She is asymptomatic. Blood pressure on discharge 116/78, respirations 78, pulse 79, temperature 98.3. The rest of the examination is unremarkable. Normocephalic, atraumatic. Neck full range of motion. Pupils equal and reactive to light. Distal pulses are symmetric. No evidence of deep venous thrombosis (DVT) or superficial phlebitis. CHEST: Clear bilaterally to bases. No wheezes or rhonchi. No costovertebral angle (CVA) tenderness. ABDOMEN: Soft. Four quadrant bowel sounds are noted. Incision is clean and dry. No nausea, diarrhea or constipation. No urgency or frequency. No rashes, lesions or pruritus. No arthralgias or myalgias. No complaint of joint pain. The patient is actively breast feeding, doing well. Incision is clean and dry. She is mobilizing, passing gas, voiding and has had a bowel movement. Plans are for discharge today, six week checkup, two week incision check. Medications will be picked up at [facility]. All questions were answered, 20 minute discussion. Patient was discharged improved.
[2020-11-14] MEDS: PRENATAL VITAMINS CHEWABLE TABLET PO SCH (09:56)
[2020-11-14 10:00] VITALS: BP 139/91
== END 2020-11-14 11:10 | disposition home or self-care (01) | DRG 785 ==
LOC: M LDO 10:12 → M LDI 10:38 → M OBS 14:05
PROVIDERS: ADMIT Obstetrics & Gynecology; ATTEND Obstetrics & Gynecology
PROC: 0UL70ZZ Occlusion of Bilateral Fallopian Tubes, Open Approach (ICD-10-PCS; 2020-11-12)
PROC: 10D00Z1 Extraction of Products of Conception, Low, Open Approach (ICD-10-PCS; principal; 2020-11-12 11:32)
DX: O34.211 Maternal care for low transverse scar from previous cesarean delivery (principal); Z3A.38 38 weeks gestation of pregnancy; Z37.0 Single live birth; Z30.2 Encounter for sterilization